=== PATIENT | female | born 1980 | race Caucasian/White ===

== ENCOUNTER 2020-11-09 12:24 | Emergency (ER) | payer MEDICARE ==
[2020-11-09 13:23] LABS: HEMOGLOBIN 14.2 gm/dl (12.3-15.3); RED BLOOD COUNT 4.4 M/UL (4.00-5.10); WHITE BLOOD COUNT 7.9 K/UL (4.5-11.0)
[2020-11-09 13:47] LABS: BUN/CREATININE RATIO 4 (0-10)
== END 2020-11-09 15:50 | disposition home or self-care (01) ==
LOC: ER1 12:24
PROVIDERS: Physician Assistant
DX: R07.89 Other chest pain (principal); F17.210 Nicotine dependence, cigarettes, uncomplicated
CPT/HCPCS: 71045; 80053; 82550; 82553; 83874; 84484; 84703; 85025; 85379; 93005; 99285

== ENCOUNTER → 2021-06-09 | Outpatient (CLI) | payer MEDICARE ==
[2021-06-10 07:10] LABS: RHEUMATOID ARTHRITIS FACTOR <10.0 IU/mL (0.0-13.9)
[2021-06-10 08:14] LABS: VITAMIN D, 25-HYDROXY 21.1 ng/mL (30.0-100.0)
== END ==
LOC: LAB 11:33
PROVIDERS: Nurse Practitioner Family
DX: M79.641 Pain in right hand (principal); M79.642 Pain in left hand; M25.50 Pain in unspecified joint; M79.10 Myalgia, unspecified site; M54.50 Low back pain, unspecified; D89.9 Disorder involving the immune mechanism, unspecified; R76.8 Other specified abnormal immunological findings in serum; E55.9 Vitamin D deficiency, unspecified
CPT/HCPCS: 36415; 72202; 73130; 82550; 82728; 83520; 85652; 86140; 86200; 86431